=== PATIENT | female | born 1970 | race Two or more races ===

== ENCOUNTER → 2024-02-29 | Outpatient (CLI) | payer MEDICAID, SELFPAY ==
--- NOTE | 2024-02-29 11:00 | XR_ITS ---
Examination: Breast ultrasound, unilateral, right complete Date and time of exam: February 29, 2024 1125 hours INDICATIONS: Outside mammogram January 02, 2024 15 mm focal asymmetry lateral right breast middle depth 5 cm from the nipple Technique: Real-time navas scale ultrasonographic imaging performed right breast including all 4 quadrants as well as nipple retroareolar and axillary region. Findings: No cystic or solid mass IMPRESSION: BI-RADS Category 1: Negative study
--- NOTE | 2024-02-29 11:30 | XR_ITS ---
Examination: Diagnostic digital mammography, unilateral, right Computer aided detection 3-D breast Tomosynthesis, unilateral Date and time of exam: February 29, 2024 1134 hours INDICATIONS: Outside mammogram January 02, 2024 15 mm focal asymmetry outer right breast Technique: Nonmagnified MLO, CC views of the right breast have been obtained, reconstructed from 3-D Tomosynthesis images. R2 computer aided detection program utilized for evaluation of suspicious masses and/or abnormal calcifications. 3-D Tomosynthesis images obtained. Findings: The breast is heterogeneously dense, which may obscure small masses Focal asymmetry remains outer right breast which may represent glandular tissue Impression: BI-RADS category 3: Probably benign findings Six-month right mammogram follow-up is needed to document stability of focal asymmetry outer right breast
== END | disposition home or self-care (01) ==
PROVIDERS: PCP Nurse Practitioner Family; Referring Provider Nurse Practitioner Family; Visit Provider Nurse Practitioner Family
DX: R92.331 Mammographic heterogeneous density, right breast (principal); N64.89 Other specified disorders of breast
CPT/HCPCS: 76641; 77061; 77065; G0279

== ENCOUNTER → 2024-08-14 | Outpatient (CLI) | payer MEDICAID, SELFPAY ==
--- NOTE | 2024-08-14 10:45 | XR_ITS ---
Examination: Diagnostic digital mammography, unilateral, right Computer aided detection 3-D breast Tomosynthesis, unilateral Date and time of exam: August 14, 2024 1031 hours INDICATIONS: Outside mammogram January 02, 2024 kidney millimeters focal asymmetry outer right breast Technique: Nonmagnified MLO, CC views of the right breast have been obtained, reconstructed from 3-D Tomosynthesis images. R2 computer aided detection program utilized for evaluation of suspicious masses and/or abnormal calcifications. 3-D Tomosynthesis images obtained. Findings: The breast is heterogeneously dense, which may obscure small masses Stable focal asymmetry outer right breast likely glandular tissue, no suspicious mass Impression: BI-RADS category 2: Benign findings Return to yearly follow-up mammography
== END | disposition home or self-care (01) ==
PROVIDERS: PCP Nurse Practitioner Family; Referring Provider Nurse Practitioner Family; Visit Provider Nurse Practitioner Family
DX: R92.321 Mammographic fibroglandular density, right breast (principal)
CPT/HCPCS: 77061; 77065; G0279

== ENCOUNTER 2024-10-02 13:00 | Day surgery (SDC) | payer MEDICAID, SELFPAY ==
[2024-10-01 15:14] VITALS: BMI 28.3
[2024-10-02] VITALS (10 sets, daily range): BP systolic 119–152; BP diastolic 67–77; PULSE 68–80; RESP 12–19; TEMP 36.8–37.2; O2SAT 96–100; BMI 26.7
[2024-10-02] MEDS: RINGERS LACTATED 1000 ML 1,000 ML 125 ML IV (14:44)
[2024-10-02] MEDS: fentaNYL CIT INJ 50 mCg/ML AMP 2ML (ASD USE ONLY) IVP (14:54)
[2024-10-02] MEDS: MIDAZOLAM INJ 1 MG/ML VIAL 2 ML (ASD USE ONLY) 2 MG IVP (14:54)
--- NOTE | 2024-10-02 16:14 | SUR.PHASEII ---
1513: Pt received for recovery. Report from Kellee ROGERS. Pt groggy, but awake. Resp even, unlabored. VS stable. Denies pain. 1530: Pt more alert. VS stable. Sitting up tolerating po fluids with no difficulty swallowing and no n/v. 1547: Pt fully awake, oriented x3. Pt dressed and assisted to transport chair. Ambulation steady. Pt and father stated understanding of discharge instructions. Pt discharged from [facility] in stable condition.
== END 2024-10-02 15:47 | disposition home or self-care (01) ==
PROVIDERS: PCP Obstetrics & Gynecology; Referring Provider Surgery; Visit Provider Surgery
PROC: 0DBE8ZX Excision of Large Intestine, Via Natural or Artificial Opening Endoscopic, Diagnostic (ICD-10-PCS; CPT 45380; principal; 2024-10-02 14:30)
DX: Z12.11 Encounter for screening for malignant neoplasm of colon (principal); E78.5 Hyperlipidemia, unspecified; E10.65 Type 1 diabetes mellitus with hyperglycemia; E04.9 Nontoxic goiter, unspecified; Z79.899 Other long term (current) drug therapy
CPT/HCPCS: 45378; 81025; A4217; J2250; J3010; J7120